=== PATIENT | male | born 1945 | race Caucasian/White ===

== ENCOUNTER 2019-11-21 01:00 | Emergency (ER) | payer OTHER, SELFPAY ==
--- NOTE | ~2019-11-21 | XR_ITS ---
EXAMINATION: XR thoracic spine 2V DATE: 11/21/2019 01:56 INDICATION: Mid and upper back pain post fall one week prior TECHNIQUE: One AP, lateral and lateral swimmer's views of the thoracic spine were obtained. COMPARISON: None. FINDINGS: Patient is rotated slightly towards the left on the frontal projection. Minimal thoracic kyphosis wit h minimal anterior wedging of a couple mid thoracic vertebral bodies. Multilevel mild to moderate dis c height loss with mild degenerative endplate changes throughout the thoracic spine. Mild left basila r atelectasis. Cardiomediastinal silhouette is normal. IMPRESSION: 1. Moderate thoracic spondylosis with age minimal anterior wedging of a couple mid thoracic vertebral bodies.. Reviewed, dictated and finalized at location A.
[2019-11-21 00:59] VITALS: BP 169/86; PULSE 88; RESP 20; TEMP 36.8; O2SAT 96
--- NOTE | 2019-11-21 01:31 | ED.BACK ---
HPI - Back Pain/Injury General Chief Complaint: Back Pain/Injury Stated Complaint: back pain History of Present Illness HPI Narrative: Patient presents with his after a fall 1 week ago out of the bed onto a trash can next to the bed. The pain was tolerable until just a couple days ago. Then he started having severe spasms. He had a similar back injury many years ago. He says the back pain is in his mid back. It has not affected his ability to urinate or defecate or use his legs. He is in too much pain now to sit up stand up or walk. He had difficulty turning over on his side for my exam. He has not been sick otherwise. He is blind in one eye and partially blind in the other. He is retired. He does not smoke cigarettes, he drinks occasional beer, he does not do marijuana. Surgeries include tonsillectomy MD elicited complaint: back pain, back injury and fall Pertinent past history: prior back pain and recent trauma Onset (ago): week(s) Timing: progressively worsening Severity: severe Similar Symptoms Previously: Yes Location: thoracic spine Radiation: none Exacerbating factors: movement, sitting upright and walking Relieving factors: immobilization Context: fall Associated symptoms: denies other symptoms Related Data Allergies Allergy/AdvReac Type Severity Reaction Status Date / Time lisinopril AdvReac Mild Cough Verified 11/21/19 01:07 Review of Systems Review of Systems: Narrative: CONSTITUTIONAL: Denies fever, chills, or sweats. EYES: Denies visual changes, redness, or discharge. ENT: Denies rhinorrhea, congestion, sore throat, or otalgia. CARDIOVASCULAR: Denies chest pain, palpitations, or edema. RESPIRATORY: Denies cough or dyspnea. GASTROINTESTINAL: Denies abdominal pain, nausea, vomiting, or diarrhea. GENITOURINARY: Denies dysuria or hematuria. SKIN: Denies rash or itching. MUSCULOSKELETAL: He has back pain, but not joint pain, or myalgia. NEUROLOGIC: Denies headache, numbness, or weakness. . All systems reviewed & are unremarkable except as noted in HPI and below PMFSH Past Medical History Medical History (Updated 11/21/19 @ 03:50 by Luci Patten MD) Benign essential hypertension BPH (benign prostatic hyperplasia) Hypothyroidism (acquired) Legally blind Optic atrophy, both eyes Surgical History Surgical History History of tonsillectomy Family History Family History (System 09/24/19 @ 13:24 by Sherlyn Lee) Other Family history of cardiovascular disease Social History Social History Smoking status: Former smoker Second hand tobacco smoke exposure: No Smoking end date: 04/15/75 Alcohol intake: current Exam Narrative: Exam Narrative: GENERAL: Well-appearing, well-nourished, and in no acute distress. He cannot pull himself over to the left side. HEAD: Normocephalic, atraumatic. EYES: PERRLA and EOMI. ENT: Nares clear, no rhinorrhea or epistaxis. Mucous membranes moist. NECK: Supple. CHEST: Clear to auscultation. No respiratory distress. HEART: Regular rate and rhythm. No murmur heard. Normal peripheral pulses. ABDOMEN: Soft, nontender, nondistended, normal active bowel sounds. EXTREMITIES: Normal range of motion. No edema. SKIN: Warm, dry, no rash. NEURO: No focal deficits. Alert and oriented x3. PSYCH: Flat affect and poor eye contact. Back: No spine tenderness, no muscle spasm. Course Reevaluation(s) Reevaluation #1: Went in to check on the patient [id number], and he has some pain improvement. He is still not able to sit himself up in bed or get out of the bed to walk. We will add more pain management to see if he can do better. Date: 11/21/19 Time: 02:53 Reevaluation #2: The nurse was able to help the patient walk to the bathroom, after the Dilaudid IV. Date: 11/21/19 Time: 03:51 Vital Signs Vital signs: Vital Signs Temperature 98.2 F 11/21/19 00:59
[2019-11-21 01:32] VITALS: BP 150/83; PULSE 87; RESP 20; O2SAT 95
[2019-11-21] MEDS: MORPHINE SULFATE 4 MG/ML INJ IV PUSH (01:56)
[2019-11-21 01:57] VITALS: BP 158/88; PULSE 88; RESP 20; O2SAT 97
[2019-11-21 02:34] VITALS: BP 149/84; PULSE 86; RESP 20; O2SAT 98
--- NOTE | 2019-11-21 02:40 | PC.NURSE ---
ATTEMPTED TO AMBULATE PT. PT C/O BACK PAIN AND STATES TOO PAINFUL TO SIT UP. DR SAM NOTIFIED.
[2019-11-21 04:01] VITALS: BP 149/84; PULSE 80; RESP 20; O2SAT 98
== END 2019-11-21 04:03 | disposition home or self-care (01) ==
PROVIDERS: Emergency Provider Emergency Medicine; PCP Family Medicine
DX: M54.6 Pain in thoracic spine (principal); M47.814 Spondylosis without myelopathy or radiculopathy, thoracic region; M40.204 Unspecified kyphosis, thoracic region; I10 Essential (primary) hypertension; N40.0 Benign prostatic hyperplasia without lower urinary tract symptoms; E03.9 Hypothyroidism, unspecified; H54.8 Legal blindness, as defined in USA; Z87.891 Personal history of nicotine dependence; W06.XXXA Fall from bed, initial encounter
CPT/HCPCS: 72070; 96374; 96375; 99284; J1170; J2270; J3360

== ENCOUNTER 2020-01-07 09:35 | Outpatient (CLI) | payer OTHER, SELFPAY ==
[2020-01-07 10:23] LABS: Basophils Absolute Auto 0.1 K/mm3 (0.0-0.1); Eosinophils Absolute Auto 0.1 K/mm3 (0-0.3); Eosinophils Percent Auto 1.4 % (0-4.4); Hematocrit 46.1 % (42.0-52.0); Hemoglobin 15.8 g/dL (14.0-18.0); Immature Granulocyte Absolute 0.03 K/mm3 (0.00-0.031); Immature Granulocyte Percent A 0.4 % (0-0.5); Lymphocytes Percent Auto 32.1 % (18.3-44.2); Mean Corpuscular HGB Conc 34.3 g/dl (32-36); Mean Corpuscular Hemoglobin 29.9 pg (26-34); Mean Corpuscular Volume 87.3 fl (80-100); Mean Platelet Volume 9.5 fl (7.4-10.4); Monocytes Absolute Auto 0.7 K/mm3 (0.1-0.6); Monocytes Percent Auto 7.9 % (2.6-8.5); Neutrophils Absolute Auto 4.8 K/mm3 (1.3-6.7); Neutrophils Percent Auto 57.2 % (45.5-73.1); Platelet Count Result 309 k/mm3 (150-375); Red Blood Count 5.28 M/mm3 (4.6-6.20); Red Cell Distribution Width 13.1 % (11.5-14.5); White Blood Count 8.4 K/mm3 (4.5-10.0)
[2020-01-07 10:30] LABS: Add Urine Microscopic? NO; Appearance Urine Clear (Clear); Bilirubin Urine Negative (Negative); Blood Urine Negative (Negative); Color Urine Yellow (Yellow); Glucose Urine UA Negative (Negative); Ketones Urine Negative (Negative); Leukocyte Esterase Ur Negative LEU/UL (Negative); Mucus Urine Rare /lpf; Nitrate Urine Negative (Negative); Protein Urine Negative (Negative); RBC Urine 0-2 /hpf (0-2); Specific Grav Ur 1.018 (1.001-1.035); Urobilinogen Urine Negative mg/dL (<2.0); WBC Urine 0-3 /hpf
[2020-01-07 10:36] LABS: Alanine Aminotransferase 30 U/L (4-50); Albumin Level 4.5 g/dL (3.5-5.1); Alkaline Phosphatase 73 U/L (38-126); Anion Gap 6 mmol/L (8-16); Aspartate Amino Transferase 24 U/L (17-59); Bilirubin,Total 0.7 mg/dL (0.2-1.3); Blood Urea Nitrogen 14 mg/dL (9-20); Calcium 10.1 mg/dL (8.4-10.2); Carbon Dioxide 28 mmol/L (22-30); Chloride 100 mmol/L (98-107); Estimated Glomerular Filt Rate > 60; Glucose 110 mg/dL (75-110); Potassium 4.4 mmol/L (3.4-5.0); Sodium 134 mmol/L (137-145)
[2020-01-07 12:10] LABS: Free T4 Free Thyroxine Reflex 1.05 ng/dL (0.78-2.19)
== END 2020-01-07 09:36 | disposition home or self-care (01) ==
LOC: ANHLAB 09:39
PROVIDERS: PCP Family Medicine; Visit Provider Family Medicine
DX: R41.82 Altered mental status, unspecified (principal); R44.3 Hallucinations, unspecified; I10 Essential (primary) hypertension; E03.9 Hypothyroidism, unspecified
CPT/HCPCS: 36415; 80053; 81003; 84439; 84443; 84480; 85025

== ENCOUNTER 2021-11-20 10:57 | Outpatient (CLI) | payer OTHER, SELFPAY ==
[2021-11-20 19:38] LABS: Cholesterol 168 mg/dL (0-200); HDL Direct 35 mg/dL; Triglycerides 103 mg/dL (<150)
[2021-11-20 19:43] LABS: Basophils Absolute Auto 0.1 K/mm3 (0.0-0.1); Basophils Percent Auto 1.1 % (0.2-1.2); Eosinophils Absolute Auto 0.2 K/mm3 (0-0.3); Eosinophils Percent Auto 3.2 % (0-4.4); Hematocrit 50.2 % (42.0-52.0); Hemoglobin 15.8 g/dL (14.0-18.0); Immature Granulocyte Absolute 0.04 K/mm3 (0.00-0.031); Immature Granulocyte Percent A 0.6 % (0-0.5); Mean Corpuscular HGB Conc 31.5 g/dl (32-36); Mean Corpuscular Hemoglobin 29.8 pg (26-34); Mean Corpuscular Volume 94.5 fl (80-100); Mean Platelet Volume 10.2 fl (7.4-10.4); Monocytes Absolute Auto 0.6 K/mm3 (0.1-0.6); Monocytes Percent Auto 8.5 % (2.6-8.5); Neutrophils Absolute Auto 4.2 K/mm3 (1.3-6.7); Neutrophils Percent Auto 58.6 % (45.5-73.1); Platelet Count Result 167 k/mm3 (150-375); Red Blood Count 5.31 M/mm3 (4.6-6.20); Red Cell Distribution Width 13.9 % (11.5-14.5); White Blood Count 7.2 K/mm3 (4.5-10.0)
[2021-11-20 19:50] LABS: LDL Cholesterol Direct 103 mg/dL
[2021-11-20 20:00] LABS: Vitamin D 25 Hydroxy 25.5 ng/mL
[2021-11-20 20:22] LABS: Hemoglobin A1C 6.2 % (<5.7)
== END 2021-11-20 10:58 | disposition home or self-care (01) ==
LOC: ANHGOSHLAB 10:59
PROVIDERS: PCP Nurse Practitioner Family; Visit Provider Nurse Practitioner Family
DX: E03.9 Hypothyroidism, unspecified (principal); I10 Essential (primary) hypertension; Z12.5 Encounter for screening for malignant neoplasm of prostate; R73.03 Prediabetes; E55.9 Vitamin D deficiency, unspecified
CPT/HCPCS: 36415; 80061; 82306; 83036; 84153; 84443; 85025; G0103

== ENCOUNTER 2022-11-22 13:47 | Outpatient (CLI) | payer OTHER, SELFPAY ==
[2022-11-22 16:04] LABS: Basophils Absolute Auto 0.1 K/mm3 (0.0-0.1); Basophils Percent Auto 0.8 % (0.2-1.2); Eosinophils Absolute Auto 0.3 K/mm3 (0-0.3); Hematocrit 45.6 % (42.0-52.0); Immature Granulocyte Absolute 0.06 K/mm3 (0.00-0.031); Immature Granulocyte Percent A 0.6 % (0-0.5); Lymphocytes Absolute Auto 2.75 K/mm3 (0.9-3.2); Lymphocytes Percent Auto 27.7 % (18.3-44.2); Mean Corpuscular HGB Conc 35.1 g/dl (32-36); Mean Corpuscular Hemoglobin 31.3 pg (26-34); Mean Corpuscular Volume 89.2 fl (80-100); Mean Platelet Volume 10.3 fl (7.4-10.4); Monocytes Absolute Auto 0.7 K/mm3 (0.1-0.6); Monocytes Percent Auto 6.7 % (2.6-8.5); Neutrophils Absolute Auto 6.1 K/mm3 (1.3-6.7); Neutrophils Percent Auto 61.2 % (45.5-73.1); Platelet Count Result 294 k/mm3 (150-375); Red Blood Count 5.11 M/mm3 (4.6-6.20); Red Cell Distribution Width 13.2 % (11.5-14.5); White Blood Count 9.9 K/mm3 (4.5-10.0)
[2022-11-22 17:56] LABS: Vitamin D 25 Hydroxy 15.8 ng/mL
[2022-11-22 19:22] LABS: LDL Cholesterol Direct 118 mg/dL
[2022-11-22 19:40] LABS: Prostate Specific Antigen 0.8 ng/mL (< OR = 4.0)
[2022-11-22 19:54] LABS: Alanine Aminotransferase 37 U/L (6-50); Albumin Level 4.3 g/dL (3.5-5.1); Alkaline Phosphatase 67 U/L (38-126); Anion Gap 10 mmol/L (8-16); Aspartate Amino Transferase 33 U/L (17-59); Bilirubin,Total 0.6 mg/dL (0.2-1.3); Blood Urea Nitrogen 16 mg/dL (9-20); Calcium 9.6 mg/dL (8.4-10.2); Carbon Dioxide 24 mmol/L (22-30); Chloride 100 mmol/L (98-107); Cholesterol 211 mg/dL (0-200); Estimated Glomerular Filt Rate > 60; Glucose 167 mg/dL (65-110); Potassium 4.2 mmol/L (3.4-5.0); Sodium 134 mmol/L (137-145)
[2022-11-22 21:13] LABS: Hemoglobin A1C 7.7 % (<5.7)
[2022-11-22 21:41] LABS: Triglycerides 617 mg/dL (<150)
== END 2022-11-22 13:48 | disposition home or self-care (01) ==
LOC: ANHGOSHLAB 13:48
PROVIDERS: PCP Family Medicine; Visit Provider Nurse Practitioner Family
DX: Z12.11 Encounter for screening for malignant neoplasm of colon (principal); Z12.12 Encounter for screening for malignant neoplasm of rectum; Z13.220 Encounter for screening for lipoid disorders; Z12.5 Encounter for screening for malignant neoplasm of prostate; Z13.1 Encounter for screening for diabetes mellitus; Z13.21 Encounter for screening for nutritional disorder; Z13.29 Encounter for screening for other suspected endocrine disorder; I10 Essential (primary) hypertension; E55.9 Vitamin D deficiency, unspecified; R73.03 Prediabetes
CPT/HCPCS: 36415; 80053; 80061; 82306; 83036; 84153; 84443; 85025; G0103

== ENCOUNTER 2023-01-01 03:06 | Day surgery (SDC) | payer OTHER, SELFPAY ==
[2022-12-20 10:47] VITALS: BMI 39.2
[2023-01-01 09:00] VITALS: BP 148/80; PULSE 90; RESP 18; TEMP 36.2; O2SAT 98
[2023-01-01] MEDS: LACTATED RINGERS 1,000 ML 150 ML IV CONT (09:08)
--- NOTE | 2023-01-01 09:23 | WPDANESEPPF ---
Anes - Initial Pre Proc Eval Procedure: Operation Date: 01/01/23 10:00 Proposed Procedures p Colonoscopy - Michael Castañeda MD Date/Time: 01/01/23 09:23 Surgeon: Michael Castañeda MD Pre Op Diagnosis: other fecal abnormalities Patient Data Age: 77 Gender: M Height: 1.7 m Weight: 99.2 kg Last Vital Signs Temp 97.1 F L 01/01/23 09:00 Pulse 90 01/01/23 09:00 Resp 18 01/01/23 09:00 BP 148/80 H 01/01/23 09:00 Pulse Ox 98 01/01/23 09:00 O2 Del Method Room Air 01/01/23 09:00 Allergies Allergy/AdvReac Type Severity Reaction Status Date / Time lisinopril Allergy Mild Cough Verified 01/01/23 08:58 Home Medications Medication Instructions Recorded Confirmed Type dutasteride 0.5 mg capsule 0.5 mg PO DAILY #90 caps 07/29/19 12/20/22 Rx escitalopram oxalate 10 mg tablet 10 mg PO DAILY #90 tabs 11/29/20 12/20/22 Rx losartan 50 mg tablet 50 mg PO DAILY #90 tabs 01/01/22 12/20/22 Rx metoprolol succinate 25 mg 25 mg PO DAILY #90 tabs 01/01/22 12/20/22 Rx tablet,extended release 24 hr lorazepam 0.5 mg tablet 0.5 mg PO .QHS #30 tabs 11/22/22 12/20/22 Rx cholecalciferol (vitamin D3) 1,250 1,250 mcg PO WEEKLY 6 months #26 11/23/22 12/20/22 Rx mcg (50,000 unit) capsule caps levothyroxine 88 mcg tablet 88 mcg PO DAILY #90 tabs 11/23/22 12/20/22 Rx Patient hx anesthesia problems: none Family hx anesthesia problems: none Results Review: All pre-operative results and documents have been reviewed as part of the pre-operative evaluation. 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 History of tonsillectomy Family History Family History Other Family history of cardiovascular disease Social History Social History (Updated 11/22/22 @ 13:11 by Karlie Vazquez MA) Smoking packs per day: 0.75 Smoking cigarettes per day: 15.0 Years smoked: 10 Smoking pack-years: 7.50 Smoking status: Former smoker Second hand tobacco smoke exposure: No Smoking end date: 04/15/75 Alcohol intake: current Substance use: never Substance use type: does not use Lack of Transportation: No Lack of Food: Never True Current Housing: I Have Housing Concerned About Future Housing: No Difficulty Paying Gas/Electric Bills: No Difficulty Paying for Meds: No Currently Unemployed: No Education: Bachelor's Degree Difficulty w/ Childcare or Family Care: No Living arrangements: assisted living Additional living arrangements comments: [facility] Occupation/Education: retired Gender identity (if verbalized by the patient): Male Spiritual care concerns: No Agree to blood products: Yes Anes - Eval Final PreProcedure Day of Procedure 01/01/23 09:23 Patient weight: obese Heart: regular rate and rhythm Lungs: clear to auscultation Airway: Mallampati scale class II Neurological: alert and oriented Last oral intake: >/= 8 hours ASA classification: III Emergent: no Anesthetic plan: proceed Anesthesia type and monitoring: general GIVS and standard monitoring Results Review: All pre-operative results and documents have been reviewed as part of the pre-operative evaluation. Informed Consent: The patient's anesthetic plan and its attendant risks and benefits were discussed with
--- NOTE | 2023-01-01 09:35 | PM.HPGS ---
History of Present Illness History of Present Illness Consent: Risks, benefits, and alternatives have been discussed and questions answered. Patient agrees to proceed with procedure. Chief complaint: other fecal abnormalities Narrative: Royal Isma Trotter Jr. is a 77 year old male here for first colonoscopy, had + cologuard Review of Systems Constitutional: Constitutional: Denies headache(s) and Denies weakness Eyes: Eyes: Denies blurry vision ENT: Reports Normal hearing present, Denies headache(s) and Denies neck pain Cardiovascular: Cardiovascular: Denies chest pain and Denies dyspnea Respiratory: Respiratory: Denies dyspnea Gastrointestinal: Gastrointestinal: Reports no additional gastrointestinal complaints Genitourinary: Genitourinary: Denies dysuria Musculoskeletal: Musculoskeletal: Denies neck pain Integumentary/Breasts: Skin/Breast: Denies dry skin Neurologic: Reports Normal hearing present, Denies headache(s) and Denies weakness Psychiatric: Psychiatric: Denies anxiety Endocrine: Endocrine: Denies change in body appearance Hematologic/Lymphatic: Hematologic/Lymphatic: Denies easy bleeding Allergic/Immunologic: Allergic/Immunologic: Denies urticaria PMFSH Past Medical History Medical History (Updated 12/12/22 @ 16:04 by Gris Antunez, DEREK) Benign essential hypertension Benign neoplasm of cerebral meninges BPH (benign prostatic hyperplasia) Depression Hyperlipidemia Hypothyroidism (acquired) Legally blind Optic atrophy, both eyes Positive colorectal cancer screening using Cologuard test Vascular dementia with behavioral disturbance Surgical History Surgical History History of craniotomy 10/12/19 - right fronto temporal craniotomy for meningioma resection 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 History of tonsillectomy Family History Family History Other Family history of cardiovascular disease Social History Social History (Updated 11/22/22 @ 13:11 by Karlie Vazquez MA) Smoking packs per day: 0.75 Smoking cigarettes per day: 15.0 Years smoked: 10 Smoking pack-years: 7.50 Smoking status: Former smoker Second hand tobacco smoke exposure: No Smoking end date: 04/15/75 Alcohol intake: current Substance use: never Substance use type: does not use Lack of Transportation: No Lack of Food: Never True Current Housing: I Have Housing Concerned About Future Housing: No Difficulty Paying Gas/Electric Bills: No Difficulty Paying for Meds: No Currently Unemployed: No Education: Bachelor's Degree Difficulty w/ Childcare or Family Care: No Living arrangements: assisted living Additional living arrangements comments: [facility] Occupation/Education: retired Gender identity (if verbalized by the patient): Male Spiritual care concerns: No Agree to blood products: Yes Meds Home Medications and Allergies Home Medications Medication Instructions Recorded Confirmed Type dutasteride 0.5 mg capsule 0.5 mg PO DAILY #90 caps 07/29/19 12/20/22 Rx escitalopram oxalate 10 mg tablet 10 mg PO DAILY #90 tabs 11/29/20 12/20/22 Rx losartan 50 mg tablet 50 mg PO DAILY #90 tabs 01/01/22 12/20/22 Rx metoprolol succinate 25 mg 25 mg PO DAILY #90 tabs 01/01/22 12/20/22 Rx tablet,extended release 24 hr lorazepam 0.5 mg tablet 0.5 mg PO .QHS #30 tabs 11/22/22 12/20/22 Rx cholecalciferol (vitamin D3) 1,250 1,250 mcg PO WEEKLY 6 months #26 11/23/22 12/20/22 Rx mcg (50,000 unit) capsule caps levothyroxine 88 mcg tablet 88 mcg PO DAILY #90 tabs 11/23/22 12/20/22 Rx Allergies Allergy/AdvReac Type Severity Reaction Status Date / Time lisinopril Allergy Mild Cough Verified 01/01/23 08:58 Vital Signs Vital Signs - 24 hr 01/01/23 09:00 Temperature 97.1 F L Pulse Rate 90 Respirato
[2023-01-01 10:04] VITALS: BP 116/76; PULSE 77; RESP 20; O2SAT 95
[2023-01-01 10:14] VITALS: BP 152/90; PULSE 72; RESP 22; O2SAT 96
[2023-01-01 10:24] VITALS: BP 148/93; PULSE 63; RESP 28; O2SAT 100
== END 2023-01-01 10:41 | disposition home or self-care (01) ==
PROVIDERS: PCP Family Medicine; Visit Provider Internal Medicine Gastroenterology
PROC: 0DJD8ZZ Inspection of Lower Intestinal Tract, Via Natural or Artificial Opening Endoscopic (ICD-10-PCS; CPT 45378; principal; 2023-01-01 10:00)
DX: R19.5 Other fecal abnormalities (principal); D12.2 Benign neoplasm of ascending colon; D12.3 Benign neoplasm of transverse colon; K57.30 Diverticulosis of large intestine without perforation or abscess without bleeding; K64.8 Other hemorrhoids; E78.5 Hyperlipidemia, unspecified; E03.9 Hypothyroidism, unspecified; I10 Essential (primary) hypertension; F01.518 Vascular dementia, unspecified severity, with other behavioral disturbance; Z87.891 Personal history of nicotine dependence; E66.9 Obesity, unspecified; Z68.34 Body mass index [BMI] 34.0-34.9, adult
CPT/HCPCS: 45385; 88305; J2704; J7120

== ENCOUNTER 2023-06-03 11:31 | Outpatient (CLI) | payer OTHER, SELFPAY ==
[2023-06-03 13:02] LABS: Basophils Absolute Auto 0.1 K/mm3 (0.0-0.1); Basophils Percent Auto 0.8 % (0.2-1.2); Eosinophils Absolute Auto 0.2 K/mm3 (0-0.3); Eosinophils Percent Auto 1.8 % (0-4.4); Hematocrit 46.2 % (42.0-52.0); Hemoglobin 15.5 g/dL (14.0-18.0); Immature Granulocyte Absolute 0.11 K/mm3 (0.00-0.031); Immature Granulocyte Percent A 1.1 % (0-0.5); Lymphocytes Absolute Auto 2.36 K/mm3 (0.9-3.2); Lymphocytes Percent Auto 24.3 % (18.3-44.2); Mean Corpuscular HGB Conc 33.5 g/dl (32-36); Mean Corpuscular Hemoglobin 30.3 pg (26-34); Mean Corpuscular Volume 90.2 fl (80-100); Mean Platelet Volume 10.4 fl (7.4-10.4); Monocytes Absolute Auto 0.9 K/mm3 (0.1-0.6); Monocytes Percent Auto 9.3 % (2.6-8.5); Neutrophils Absolute Auto 6.1 K/mm3 (1.3-6.7); Neutrophils Percent Auto 62.7 % (45.5-73.1); Platelet Count Result 314 k/mm3 (150-375); Red Blood Count 5.12 M/mm3 (4.6-6.20); Red Cell Distribution Width 13.1 % (11.5-14.5); White Blood Count 9.7 K/mm3 (4.5-10.0)
[2023-06-03 13:05] LABS: Cholesterol 194 mg/dL (0-200); HDL Direct 37 mg/dL; Triglycerides 302 mg/dL (<150)
[2023-06-03 13:16] LABS: LDL Cholesterol Direct 117 mg/dL
[2023-06-03 14:13] LABS: Hemoglobin A1C 8.1 % (<5.7)
== END 2023-06-03 11:32 | disposition home or self-care (01) ==
LOC: ANHGOSHLAB 11:33
PROVIDERS: PCP Family Medicine; Visit Provider Nurse Practitioner Family
DX: E78.5 Hyperlipidemia, unspecified (principal); I10 Essential (primary) hypertension; F32.9 Major depressive disorder, single episode, unspecified; R73.03 Prediabetes; Z13.29 Encounter for screening for other suspected endocrine disorder; Z13.220 Encounter for screening for lipoid disorders
CPT/HCPCS: 36415; 80061; 83036; 84443; 85025

== ENCOUNTER 2023-12-30 15:06 | Outpatient (CLI) | payer OTHER, SELFPAY ==
[2023-12-30 18:26] LABS: Basophils Absolute Auto 0.1 K/mm3 (0.0-0.1); Basophils Percent Auto 0.9 % (0.2-1.2); Eosinophils Absolute Auto 0.2 K/mm3 (0-0.3); Eosinophils Percent Auto 1.6 % (0-4.4); Hematocrit 47.1 % (42.0-52.0); Hemoglobin 16.1 g/dL (14.0-18.0); Immature Granulocyte Absolute 0.08 K/mm3 (0.00-0.031); Immature Granulocyte Percent A 0.8 % (0-0.5); Lymphocytes Absolute Auto 2.68 K/mm3 (0.9-3.2); Lymphocytes Percent Auto 28.3 % (18.3-44.2); Mean Corpuscular HGB Conc 34.2 g/dl (32-36); Mean Corpuscular Hemoglobin 30.3 pg (26-34); Mean Corpuscular Volume 88.7 fl (80-100); Mean Platelet Volume 10.5 fl (7.4-10.4); Monocytes Absolute Auto 0.6 K/mm3 (0.1-0.6); Monocytes Percent Auto 6.5 % (2.6-8.5); Neutrophils Absolute Auto 5.9 K/mm3 (1.3-6.7); Neutrophils Percent Auto 61.9 % (45.5-73.1); Platelet Count Result 298 k/mm3 (150-375); Red Blood Count 5.31 M/mm3 (4.6-6.20); Red Cell Distribution Width 13.3 % (11.5-14.5); White Blood Count 9.5 K/mm3 (4.5-10.0)
[2023-12-30 18:50] LABS: Hemoglobin A1C 9.1 % (<5.7)
[2023-12-30 19:07] LABS: Alanine Aminotransferase 27 U/L (6-50); Albumin Level 4.6 g/dL (3.5-5.1); Alkaline Phosphatase 68 U/L (38-126); Anion Gap 17 mmol/L (4-12); Aspartate Amino Transferase 36 U/L (17-59); Bilirubin,Total 0.9 mg/dL (0.2-1.3); Blood Urea Nitrogen 19 mg/dL (9-20); Calcium 9.5 mg/dL (8.4-10.2); Carbon Dioxide 23 mmol/L (22-30); Chloride 91 mmol/L (98-107); Cholesterol 208 mg/dL (0-200); Estimated Glomerular Filt Rate > 60; Glucose 251 mg/dL (65-110); HDL Direct 43 mg/dL; Potassium 4.9 mmol/L (3.4-5.0); Sodium 131 mmol/L (137-145); Triglycerides 284 mg/dL (<150)
[2023-12-30 19:18] LABS: LDL Cholesterol Direct 121 mg/dL
[2023-12-30 19:36] LABS: Prostate Specific Antigen 0.9 ng/mL (< OR = 4.0)
== END 2023-12-30 15:07 | disposition home or self-care (01) ==
LOC: ANHGOSHLAB 15:07
PROVIDERS: PCP Family Medicine; Visit Provider Nurse Practitioner Family
DX: I10 Essential (primary) hypertension (principal); E78.5 Hyperlipidemia, unspecified; E11.9 Type 2 diabetes mellitus without complications; E03.9 Hypothyroidism, unspecified; Z12.5 Encounter for screening for malignant neoplasm of prostate
CPT/HCPCS: 36415; 80053; 80061; 83036; 84153; 84443; 85025; G0103

== ENCOUNTER 2024-04-06 11:06 | Outpatient (CLI) | payer OTHER, SELFPAY ==
[2024-04-06 12:39] LABS: Alanine Aminotransferase 26 U/L (6-50); Albumin Level 4.2 g/dL (3.5-5.1); Alkaline Phosphatase 56 U/L (38-126); Anion Gap 3 mmol/L (4-12); Aspartate Amino Transferase 33 U/L (17-59); Bilirubin,Total 0.7 mg/dL (0.2-1.3); Blood Urea Nitrogen 17 mg/dL (9-20); Calcium 9.7 mg/dL (8.4-10.2); Carbon Dioxide 27 mmol/L (22-30); Chloride 107 mmol/L (98-107); Cholesterol 211 mg/dL (0-200); Estimated Glomerular Filt Rate > 60; Glucose 191 mg/dL (65-110); HDL Direct 37 mg/dL; Potassium 4.7 mmol/L (3.4-5.0); Sodium 137 mmol/L (137-145); Triglycerides 323 mg/dL (<150)
[2024-04-06 12:50] LABS: LDL Cholesterol Direct 130 mg/dL
[2024-04-06 13:02] LABS: Creatinine Urine 73.3 mg/dL
[2024-04-06 13:11] LABS: MALB Creatinine Ratio < 8.2 mg/g (0-30); Microalbumin Urine Random < 6.0 mg/L (0-16.7)
[2024-04-06 13:48] LABS: Hemoglobin A1C 6.9 % (<5.7)
== END 2024-04-06 11:07 | disposition home or self-care (01) ==
LOC: ANHGOSHLAB 11:07
PROVIDERS: PCP Family Medicine; Visit Provider Nurse Practitioner Family
DX: E78.5 Hyperlipidemia, unspecified (principal); E11.9 Type 2 diabetes mellitus without complications
CPT/HCPCS: 36415; 80053; 80061; 82043; 83036

== ENCOUNTER 2024-06-29 11:22 | Outpatient (CLI) | payer OTHER, SELFPAY ==
[2024-06-29 13:56] LABS: Basophils Absolute Auto 0.1 K/mm3 (0.0-0.1); Basophils Percent Auto 1.1 % (0.2-1.2); Eosinophils Absolute Auto 0.2 K/mm3 (0-0.3); Eosinophils Percent Auto 2.1 % (0-4.4); Hematocrit 51.7 % (42.0-52.0); Hemoglobin 17.5 g/dL (14.0-18.0); Immature Granulocyte Absolute 0.07 K/mm3 (0.00-0.031); Immature Granulocyte Percent A 0.8 % (0-0.5); Lymphocytes Absolute Auto 1.97 K/mm3 (0.9-3.2); Lymphocytes Percent Auto 23.9 % (18.3-44.2); Mean Corpuscular HGB Conc 33.8 g/dl (32-36); Mean Corpuscular Volume 88.5 fl (80-100); Mean Platelet Volume 10.2 fl (7.4-10.4); Monocytes Absolute Auto 0.8 K/mm3 (0.1-0.6); Monocytes Percent Auto 9.1 % (2.6-8.5); Neutrophils Absolute Auto 5.2 K/mm3 (1.3-6.7); Platelet Count Result 279 k/mm3 (150-375); Red Blood Count 5.84 M/mm3 (4.6-6.20); Red Cell Distribution Width 14.4 % (11.5-14.5); White Blood Count 8.3 K/mm3 (4.5-10.0)
--- OUTSIDE RECORDS SUMMARY | 2024-06-29 14:02 | XMS_ITS | Clinical Summary ---
Author Organization [facility] Address [place] [address] Care Team Providers Care Fuel Agent Name Role Phone Mo Garcia OD Unavailable [phone] Twin Dawson MD Unavailable [phone] Ang Gallo MD Unavailable [phone] Audie Hennessy MD Primary Care Provider Marjorie Nick MD Unavailable Allergies Active Allergy Reactions Criticality Noted Date Comments Lisinopril Cough Low 10/26/2019 Medications dutasteride (AVODART) 0.5 mg capsuleIndicatio ns:benign prostatic hyperplasia with lower urinary tract sx Take 1 capsule (0.5 mg total) by mouth nightly Active losartan (COZAAR) 50 mg tabletIndication s:hypertension Take 1 tablet (50 mg total) by mouth nightly Active levothyroxine (SYNTHROID) 75 mcg tablet Take 1 tablet (75 mcg total) by mouth postdoctoral research associate before breakfast Active metoprolol XL (TOPROL-XL) 25 mg extended release tablet Take 1 tablet (25 mg total) by mouth daily 30 tablet 11 0 Active escitalopram (LEXAPRO) 10 mg tablet Take 1 tablet (10 mg total) by mouth daily 1 Active LORazepam (ATIVAN) 0.5 mg tablet Take 1 tablet (0.5 mg total) by mouth every 6 (six) hours as needed 1 Active cholecalciferol (VITAMIN D-3) 50,000 unit capsule 3 Active benzonatate (TESSALON) 100 mg capsule 4 Active metroNIDAZOLE (METROGEL) 1 % gel 4 Active Paxlovid tablets,dose pack tablets in a dose pack 4 Active metFORMIN (GLUCOPHAGE) 1,000 mg tablet 4 Active levothyroxine (SYNTHROID) 100 mcg tablet 4 Active Active Problems Problem Noted Date Diagnosed Date S/P LABOR UTILIZATION SUPERINTENDENT shunt 04/29/2020 Hydrocephalus 02/01/2020 Overview (02/01/2020): Added automatically from request for surgery [id number] Other hydrocephalus 01/29/2020 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 Sodium was normal on admission and fell to a low of 131 on 10/16. Serum osmolality drawn was 340 at that time. Unclear if lab error contributed to that value otherwise he would have hyperosmolar hyponatremia. It does not appear that he received mannitol this admission and he has not profoundly hyperglycemic. Plan to repeat BMP and serum Osm. 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 Will continue to monitor and if discharged would make sure to have a BMP drawn within a week. Atrial fibrillation with RVR 10/15/2019 Assessment & Plan (10/20/2019 11:19 AM CDT): Developed episode of AFib with RVR postop and subsequently converted to normal sinus rhythm after amiodarone therapy. Heart rate was not responsive to metoprolol 5 mg IV x2. He is currently on amiodarone 400 mg t.i.d. with plans to taper to once daily dosing. The patient has no documented prior history of AFib. -I suspect this episode of AFib with RVR was likely secondary to his procedure and will be transient -Recommend discontinuing amiodarone and continuing to monitor. Please alert his primary care doctor at discharge so that he can follow up and determine any further steps if he develops recurrent arrhythmia or palpitations. -maintained sinus rhythm overnight Incidental pulmonary nodule 10/15/2019 Overview (10/16/2019): RML 3 mm nodule seen incidentally on CT chest PE protocol Urinary retention 10/14/2019 Meningioma 10/02/2019 Overview (10/02/2019): Added automatically from request for surgery [id number] Legally blind 09/28/2019 Blindness right eye category 3, low vision left eye category 1 09/26/2019 Encounter for surgical after care following surgery on the nervous system 09/26/2019 Hypo-osmolality and hyponatremia 09/26/2019 Retention of urine, unspecified 09/26/2019 Hypertension Immunizations Immunization Administration Dates Next Due Influenza, Quadrivalent, Hig h Dose, Preservative Free, Intrr 01/12/2020 Influenza, Quadrivalent, Split, Intramuscular Influenza, Trivalent, High D ose, Split, Preservative Free, Intramuscular 01/13/2015 Influenza, Trivalent, IM (MDV) 12/15/2013,2012 Pfizer SARS-CoV-2 Monovalent Vaccination (12+ Yrs) PURPLE 06/03/2020 Pfizer Sars-Cov-2 Bivalent Vaccination (12+ YRS) 04/10/2022 Pneumococcal Polysaccharide PPV23 04/15/2016,04/2015 Tdap 03/08/2021 Surgical History Surgery Date Site/Laterality Comments CATARACT EXTRACTION W/ INTRAOCULAR LENS IMPLANT 08/24/[address] Twin Dawson CATARACT EXTRACTION W/ INTRAOCULAR LENS IMPLANT 05/26/[address] Twin Dawson CRANIOTOMY FOR TUMOR 10/12/2019 Right Right fronto-temporal craniotomy for resection of meningioma, Dr. Ang Gallo Medical History Medical History Date Comments Hypertension Benign prostatic hyperplasia Hypothyroidism Brain tumor (benign) (HCC) Acid reflux Family History Medical History Relation Name Comments Heart disease Brother Heart disease Father Stroke Mother (possibly) Diabetes Paternal Grandmother Vision loss Neg Hx Relation Name Status Comments Brother Father Mother Paternal Grandmother Social History Tobacco Use Types Packs/Day Years Used Date Smoking Tobacco: Former Cigarettes 0.8 13 1 963 - 1975 Smokeless Tobacco: Never Tobacco Cessation:Counseling Given: No Alcohol Use Standard Drinks/Week Comments Yes 10 (1 standard drink = 0.6 oz pu re alcohol) 10 beers per week Social Connection and Isolat ion Panel [NHANES] Answer Date Recorded In a typical week, how many times do you talk on the phone with family, friends, or neighbors? Three times a week 02/15/2020 How often do you get togethe r with friends or relatives? Once a week 02/15/2020 How often do you attend chur ch or samaritan services? Never 02/15/2020 Do you belong to any clubs o r organizations such as synagogue groups, unions, fraternal or athletic groups, or school groups? Yes 02/15/2020 How often do you attend meet ings of the clubs or organizations you belong to? More than 4 times per year 02/15/2020 Are you , , di vorced, , never , or living with a partner? 02/15/2020 AUDIT-C Answer Date Recorded Q1: How often do you have a drink containing alc ohol? Monthly or less 04/10/2022 Q2: How many drinks containi ng alcohol do you have on a typical day when you are drinking? 1 or 2 04/10/2022 Q3: How often do you have si x or more drinks on one occasion? Less than monthly 04/10/2022 Overall Financial Resource Strain (CARDIA) Answe r Date Recorded How hard is it for you to pa y for the very basics like food, housing, medical care, and heating? Not hard at all 02/15/2020 Hunger Vital Sign Answer Date Recorded Within the past 12 months, y ou worried that your food would run out before you got the money to buy more. Never true 02/15/20 20 Within the past 12 months, t he food you bought just didn't last and you didn't have money to get more. Never true 02/15/2020 PRAPARE - Transportation Answer Date Re corded In the past 12 months, has l ack of transportation kept you from medical appointments or from getting medications? No 05/2019 In the past 12 months, has l ack of transportation kept you from meetings, work, or from getting things needed for daily living? 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 Gender Identity Not on file Sexual Orientation Not on file Occupation Industry Job Start Date Job End Date retired Not on file Not on file Not on file Obstetrics History Last Filed Vital Signs Vital Sign Reading Time Taken Comments Blood Pressure 119/76 01/15/2024 1:43 PM CDT Pulse 60 01/15/2024 1:43 PM CDT Temperature 36.4 C (97.5 F) 01/15/2024 1:43 PM CDT Respiratory Rate 18 01/15/2024 1:43 PM CDT Oxygen Saturation 97% 01/15/2024 1:43 PM CDT Inhaled Oxygen Concentration - - Weight 95.3 kg (210 lb) 01/15/2024 1:43 PM CDT Height 170.2 cm (5' 7 ) 01/15/2024 12:18 PM CDT Body Mass Index 32.89 01/15/2024 12:18 PM CDT Plan of Treatment Health Maintenance Due Date Last Done Comments Depression Screening 1945 Hepatitis C Screening 1946 Hepatitis B Screening 1964 Zoster Vaccine (1 of 2) 1965 Abdominal Aortic Aneurysm (A AA) Screen 2011 Well Visit 65+ 2011 Pneumococcal vaccine 65+ (3 of 3 - PCV) 04/15/2017 04/15/2016, 04/15/2015 Covid-19 Vaccine (4 - 2023-2 5 season) 2023 04/10/2022, 03/15/2021, 06/03/2020 Influenza Vaccine (#1) 2023 0, 01/20/2019, 01/13/2015, Additional history exists Fall Risk Assessment 05/15/2024 05/15/2023, 02/25/20 20 DTaP/Tdap/Td Vaccine (2 - Td or Tdap) 03/08/2031 03/08/2021 Medical Devices Implanted Type Area Dental Equipment Installer And Servicer Device Identifier Shelf Expiration Date Model / Serial / Lot [employer] Craniomaxillofacial [id number] [place] Neuro Iii 47x29x.3mm Closed Outer Frame Temporal Plate - [id number] Implanted:Qty: 1 on 10/12/2019 by Ang Gallo MD at [facility] [employer] Craniomaxillofacial [id number] 4 / / Jeff Craniomaxillofacial [id number] [place] Neuro Iii 16mmx.4mm 2 Hole Low Profile Bar - [id number] Implanted:Qty: 2 on 10/12/[facility] Craniomaxillofacial 53-3421 6 / / [place] Craniomaxillofacial [id number] [place] Neuro Iii .4mm 2 Hole Low Profile Bar Tab - [id number] Implanted:Qty: 2 on 10/12/2019 [facility] Craniomaxillofacial 53-3421 2 / / Jeff Craniomaxillofacial [id number] [place] Neuro Iii 14mm Tab Craniomaxillofacial Low Profile - [id number] Implanted:Qty: 3 on 10/12/2019 by Ang Gallo MD at [facility] Craniomaxillofacial 53-3451 4 / / [place] Craniomaxillofacial [id number] [place] Neuro 3 1.5mm 4mm Self Drill Axial Stability Screw Bone Latex Free - [id number] Implanted:Qty: 20 on 10/12/2019 by Ang Gallo MD at [facility] [id number] / / Acelity Lp Inc [id number] Alloderm 10x5cm Allograft Regenerative Freeze Dried Medium Matrix - [id number] Implanted:Qty: 1 on 10/12/2019 by Ang Gallo MD at [facility] Right: Cranial Allergan U[employer] Inc 05/14/2021 [id number] / / [id number] 33-033 Medtronic Inc 58572 Input Ts 9fr 11cm .038in Dual Distal J Curve Introducer Sheath - [id number] Implanted:Qty: 1 on 02/11/2020 by Ang Gallo MD at [facility] Right: Head Medtronic Inc 06/29/2021 [id number] / / [id number] Description:The Strata II va lve is considered Magnetic Resonance Conditional in accordance with ASTM F2503. MRI systems of up to 3.0 Nathan may be used any time after implantation and will not damage the Strata II valve mechanism, but can change the performance level setting. The performance level setting should always be checked before and after MRI exposure. The results of the tests performed to assess magnetic field interactions, artifacts, and heating, indicated the presence of the valves evaluated should present no substantial risk to a patient undergoing an MRI procedure using the following conditions: Static magnetic field of 3.0 Nathan or less Spatial Gradient of 720 G/cm or less Radio Frequency (RF) Boyce with an average Specific Absorption Rate (MEDHAT) of 3 W/kg for 15 minutes. Using the Anthem [employer] Intelligence 3.0T Listare VeriTainer Magnetic Resonance Imaging System, the valve experienced a maximum temperature change of 0.4 C over a 15-minute exposure period. The table provides maximum signal voids (artifact sizes) for standard imaging pulse sequences at 3.0 Nathan per ASTM F2119. [email or web address] Medtronic MinuteKey Inc X [id number] Strata Ii Csf Programmable Flow Control Ball Spring Mechanism - [id number] Implanted:Qty: 1 on 02/11/2020 by Ang Gallo MD at [facility] Right: Head Medtronic Inc 05/09/2022 [id number] / / [id number] Description:Strata adjustabl e valves: MR conditional Strata adjustable valves are considered magnetic resonance conditional in accordance with ASTM F2503. MRI systems of up to 3.0 nathan and a spatial gradient magnetic field of 720 gauss/cm or less, may be used at any time after implantation without damaging the Strata adjustable valve mechanism. However, exposure to MRI can change the performance level setting of the Strata adjustable valve. The Strata adjustable valve performance level setting should always be checked before and after MRI exposure. https://www.medtronic.com/us-en/healthcare-professionals/mri-resources/neurologi pauline-dilcia sorto.html Medtronic Inc 64225 Giuseppe .25cm .13cm 120cm Antibiotic Impregnated Peritoneal Catheter - [id number] Implanted:Qty: 1 on 02/11/2020 by Ang Gallo MD at [facility] Right: Abdomen Medtronic Inc 05/25/2021 [id number] / / [id number] Insurance Advance Directives For more information, please contact: [phone] Documents on File Type Date Recorded Patient Knot Tying Operator Expl anation ADVANCE DIRECTIVE 10/12/2019 9:25 AM Power of Magazine Editor-Medical * Full Code (Latest Code Status on File) Date Activated Date Inactivated Comments 02/11/2020 4:37 PM 02/25/2020 3:55 PM * Full Code Date Activated Date Inactivated Comments 10/13/2019 12:40 AM 10/21/2019 4:13 PM Care Teams Fuel Agent Relationship Specialty Start Date End Date Audie Hennessy MD [address] [facility] [address] [place], [place] [address] PCP - General Family Practice 04/10/23 Mo Garcia, MAYRA [address] [place] [address] Primary Eye Care Provider Senior Marketing Engineer 07/27/19 Twin Dawson MD [address] [place] [address] Surgeon Ophthalmology 07/27/19 Ang Gallo MD [address] [place] [address] Surgeon Neurosurgery 10/26/19 Marjorie Nick MD [address] [facility] [address] [place] [address] Radiation Oncologist Radiation Oncology 01/15/24
--- OUTSIDE RECORDS SUMMARY | 2024-06-29 14:02 | XMS_ITS | Encounter Summary ---
Author Organization [facility] Address [address] [place] [address] Care Team Providers Care Management Aide Name Role Phone Gabby Tomlinson MD Primary Care Provider Mo Garcia OD Unavailable [phone] Twin Dawson MD Unavailable [phone] Ang Gallo MD Unavailable [phone] Audie Hennessy MD Primary Care Provider Audie Hennessy MD Primary Care Provider Marjorie Nick MD Unavailable Encounter Details Date Type Department Care Team (Late st Contact Info) Description 09/24/2019 Telephone [facility] Imaging [address] [place] [address] Alexia Ch, RT Social History Tobacco Use Types Packs/Day Years Used Date Smoking Tobacco: Former Cigarettes 0.5 10 Smokeless Tobacco: Never Sex and Gender Information Value Date Recorded Sex Assigned at Not on file 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 Gender Identity Not on file Sexual Orientation Not on file Occupation Industry Job Start Date Job End Date retired Not on file Not on file Not on file documented as of this encounter Plan of Treatment Not on file documented as of this encounter Visit Diagnoses Not on filedocumented in this encounter Care Teams Management Aide Relationship Specialty Start Date End Date Gabby Tomlinson MD PCP - General Family Medicine 06/05/19 01/11/20 Audie Hennessy MD [address] [place] [address] PCP - General 01/12/20 04/09/23 Audie Hennessy MD [address] [facility] [address] [place] [address] PCP - General Family Practice 04/10/23 Mo Garcia OD [address] [place] [address] Primary Eye Care Provider High School Assistant Football Coach 07/27/19 Twin Dawson MD [address] [place] [address] Surgeon Ophthalmology 07/27/19 Ang Gallo MD [address] [place] [address] Surgeon Neurosurgery 10/26/19 Marjorie Nick MD [address] [facility] [address] [place] [address] Radiation Oncologist Radiation Oncology 01/15/24 documented as of this encounter
--- OUTSIDE RECORDS SUMMARY | 2024-06-29 14:02 | XMS_ITS | Clinical Summary ---
Author Organization [facility] Address [address] [place] [address] Care Team Providers Care Emergency Management Coordinator Name Role Phone Unavailable Primary Care Provider Unavailabl e Social History Tobacco Use Types Packs/Day Years Used Date Smoking Tobacco: Never Assessed Sex and Gender Information Value Date Recorded Sex Assigned at Not on file Legal Sex Male 4:14 PM CDT Gender Identity Not on file Sexual Orientation Not on file Plan of Treatment Health Maintenance Due Date Last Done Comments Hepatitis C 1964 DTaP, Tdap and Td Vaccines ( 1 - Tdap) 1965 Zoster Vaccines (1 of 2) 1996 Pneumococcal Vaccine: 65+ Ye ars (1 of 1 - PCV) 2011 RSV Immunization or 60+ Years (1 - 1-dose 75+ series) 2021 COVID-19 Vaccine ( - 2023-2 5 season) 2023 Influenza Adult (#1) 2024 Meningococcal B Vaccine Aged Out No l onger eligible based on patient's age to complete this topic Meningococcal Vaccine Aged Out No susan reynaldo eligible based on patient's age to complete this topic RSV Immunizations Under 20 Months Aged Out No longer eligible based on patient's age to complete this topic
--- OUTSIDE RECORDS SUMMARY | 2024-06-29 14:02 | XMS_ITS | Referral Summary ---
Author Organization [facility] Address [facility] [place] [address] Care Team Providers Care Associate Professor Of Surgery Name Role Phone Mo Garcia OD Unavailable [phone] Twin Dawson MD Unavailable [phone] Ang Gallo MD Unavailable [phone] Audie Hennessy MD Primary Care Provider Marjorie [...] 1 tablet (75 mcg total) by mouth bindery machine tender before breakfast Active metoprolol XL (TOPROL-XL) 25 [...] Problems Problem Noted Date Diagnosed Date S/P DRAMATIC COACH shunt 04/29/2020 Hydrocephalus 02/01/2020 Overview (02/01/2020): Added automatically from request for surgery [id number] Other hydrocephalus 01/29/2020 Optic atrophy of both [...] (10/02/2019): Added automatically from request for surgery [id number] Legally blind 09/28/2019 Blindness right eye category [...] 04/10/2022 Pneumococcal Polysaccharide PPV23 04/15/2016,04/2015 Tdap 03/08/2021 Social History Tobacco Use Types Packs/Day Years [...] 02/15/2020 How often do you attend chur 4moms or yarsani services? 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 Gender Identity Not on file Sexual Orientation Not on file Occupation Industry Job Start Date Job End Date retired Not on file Not on file Not on file Last Filed Vital Signs Vital Sign Reading [...] 01/15/2024 12:18 PM CDT Plan of Treatment Not on file Medical Devices Implanted Type Area Design Intern Device Identifier Shelf Expiration Date Model / Serial / Lot [place] Craniomaxillofacial [id number] [place] Neuro Iii 47x29x.3mm Closed Outer Frame Temporal Plate - [id number] Implanted:Qty: 1 on 10/12/2019 by Ang Gallo MD at [facility] Craniomaxillofacial 53-0032 4 / / [place] Craniomaxillochan [facility] [id number] [place] Neuro Iii 16mmx.4mm 2 Hole Low Profile Bar - [id number] Implanted:Qty: 2 on 10/12/2019 by Ang Gallo MD at [facility] Craniomaxillochan [facility] 53-3421 6 / / [place] Craniomaxillofacial [id number] [place] Neuro Iii .4mm 2 Hole Low Profile Bar Tab - [id number] Implanted:Qty: 2 on 10/12/2019 by Ang Gallo MD at [facility] Craniomaxillochan [facility] 53-3421 2 / / Jeff Craniomaxillofacial [id number] [place] Neuro Iii 14mm Tab Craniomaxillofacial Low Profile - [id number] Implanted:Qty: 3 on 10/12/2019 by Ang Gallo MD at [facility] Craniomaxillochan [facility] 53-3451 4 / / Jeff Craniomaxillofacial [id number] [place] Neuro 3 1.5mm 4mm Self Drill Axial Stability Screw Bone Latex Free - [id number] Implanted:Qty: 20 on 10/12/2019 by Ang Gallo MD at [facility] [id number] 4 / / Acelity Lp Inc [id number] Alloderm 10x5cm Allograft Regenerative Freeze Dried Medium Matrix - [id number] Implanted:Qty: 1 on 10/12/2019 by Ang Gallo MD at [facility] Right: Cranial Allergan [employer] Inc 05/14/2021 [id number] / / [id number] 33-033 Medtronic Inc 50664 Input Ts 9fr 11cm .038in Dual Distal J Curve Introducer Sheath - [id number] Implanted:Qty: 1 on 02/11/2020 by Ang Gallo MD at [facility] Right: Head Medtronic Inc 06/29/2021 [id number] / / [id number] Description:The Strata II va lve is [...] 3 W/kg for 15 minutes. Using the Helpa 3.0T Shoplins Magnetic Resonance Imaging System, the valve experienced a maximum temperature change of 0.4 C over a 15-minute exposure period. The table provides maximum signal voids (artifact sizes) for standard imaging pulse sequences at 3.0 Nathan per ASTM F2119. [email or web address] Medtronic Usa Inc X 84715 Strata Ii Csf Programmable Flow Control Ball Spring Mechanism - [id number] Implanted:Qty: 1 on 02/11/2020 by Ang Gallo MD at [facility] Right: Head Medtronic Inc 05/09/2022 [id number] / / [id number] Description:Strata adjustabl e valves: MR conditional [...] checked before and after MRI exposure. https://www.medtronic.com/us-en/healthcare-professionals/mri-resources/neurologi gracia sorto.html Medtronic Inc 49870 Giuseppe .25cm .13cm 120cm Antibiotic Impregnated Peritoneal Catheter - [id number] Implanted:Qty: 1 on 02/11/2020 by Ang Gallo MD at [facility] Right: Abdomen Medtronic Inc 05/25/2021 [id number] / / [id number] [facility] Advance Directives For more information, please contact: [phone] Documents on File Type Date Recorded Patient Supervisor Fine Grading Expl anation ADVANCE DIRECTIVE 10/12/2019 9:25 AM Power of Commodity Director-Medical * Full Code (Latest Code Status on File) Date Activated Date Inactivated Comments 02/11/2020 4:37 PM 02/25/2020 3:55 PM * Full Code Date Activated Date Inactivated Comments 10/13/2019 12:40 AM 10/21/2019 4:13 PM Care Teams Associate Professor Of Surgery Relationship Specialty Start Date End Date Audie Hennessy MD [address] [facility] [address] [place] [address] PCP - General Family Practice 04/10/23 Mo Garcia OD [address] [place] [address] Primary Eye Care Provider Solar Photovoltaic Systems Engineer 07/27/19 Twin Dawson MD [address] [place] [address] Surgeon Ophthalmology 07/27/19 Ang Gallo MD [address] [place] [address] Surgeon Neurosurgery 10/26/19 Marjorie Nick MD [address] [facility] [address] [place] [address] Radiation Oncologist Radiation Oncology 01/15/24
--- OUTSIDE RECORDS SUMMARY | 2024-06-29 14:02 | XMS_ITS | Encounter Summary ---
Author Organization [facility] Address [address] [place] [address] Phone Care Team Providers Care Book Sorter Name Role Phone Gabby Tomlinson MD Primary Care Provider Mo Garcia OD Unavailable Twin Dawson MD Unavailable [phone] Ang Gallo MD Unavailable [phone] Audie Hennessy MD Primary Care Provider Audie Hennessy MD Primary Care Provider Marjorie Nick MD Unavailable Encounter Details Date Type Department Care Team (Late st Contact Info) Description 10/13/2019 Ophth Exam [facility] Ophthalmology [address] [place] [address] 1st [place] [id number] Adalgisa Novak MD [address] [place] [address] Social History Tobacco Use Types Packs/Day Years Used Date Smoking Tobacco: Former Cigarettes 0.8 10 1 966 - 1975 Smokeless Tobacco: Never Alcohol Use Standard Drinks/Week Comments Not Asked 14 (1 standard drink = 0.6 oz pu re alcohol) AUDIT-C Answer Date Recorded Q1: How often do you have a drink containing alc ohol? 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 Gender Identity Not on file Sexual Orientation Not on file Occupation Industry Job Start Date Job End Date retired Not on file Not on file Not on file documented as of this encounter Plan of Treatment Not on file documented as of this encounter Visit Diagnoses Not on filedocumented in this encounter Eye Exam Visual Acuity Right eye Left eye Near sc NLP CF at 2', HM far ther away Tonometry (Tonopen, 3:04 PM) Right eye Left eye Pressure 18 15 Pupils Dark Light React APD Right eye 3 3 MR + Left eye 3 2.5 Sluggish Visual Boyce Right eye Left eye Restrictions Total superior tempo ral, inferior temporal, superior nasal, inferior nasal deficiencies Total superior nasal, inferior nasal deficiencies; Partial outer superior temporal, inferior temporal deficiencies Tested with credit historian Extraocular Movement Right eye Left eye Up gaze 0 0 0 0 0 0 Right/left gaze -1 -- 0 0 -- -1 Down gaze 0 0 0 0 0 0 Neuro/Psych Oriented x3: Yes Mood/Affect: Normal A&O, slightly slow mentation External Exam Right eye Left eye External Normal Normal Slit Lamp Exam Right eye Left eye Lids/Lashes Normal Normal Conjunctiva/Sclera White and quiet White and alo et Cornea Clear Clear Anterior Chamber Deep and quiet Deep and quiet Iris Round and reactive Round and stephanie ctive Lens Posterior chamber in traocular lens Posterior chamber intraocular lens Vitreous Normal Normal Fundus Exam Right eye Left eye Disc Diffuse, severe pallor C/D Ratio 0.5 Care Teams Book Sorter Relationship Specialty Start Date End Date Gabby Tomlinson MD PCP - General Family Medicine 06/05/19 01/11/20 Audie Hennessy MD [address] [place] [address] PCP - General 01/12/20 04/09/23 Audie Hennessy MD [address] [facility] [address] [place] [address] PCP - General Family Practice 04/10/23 Mo Garcia, OD [address] [place] [address] Primary Eye Care Provider E Commerce Merchandising Coordinator 07/27/19 Twin Dawson MD [address] [place] [address] Surgeon Ophthalmology 07/27/19 Ang Gallo MD [address] [place] [address] Surgeon Neurosurgery 10/26/19 Marjorie Nick MD [address] [facility] [address] [place] [address] Radiation Oncologist Radiation Oncology 01/15/24 documented as of this encounter
[2024-06-29 14:59] LABS: Creatinine Urine 127.9 mg/dL
[2024-06-29 15:00] LABS: MALB Creatinine Ratio 6.2 mg/g (0-30); Microalbumin Urine Random 7.9 mg/L (0-16.7)
[2024-06-29 15:17] LABS: Alanine Aminotransferase 30 U/L (6-50); Albumin Level 4.6 g/dL (3.5-5.1); Alkaline Phosphatase 64 U/L (38-126); Anion Gap 9 mmol/L (4-12); Aspartate Amino Transferase 36 U/L (17-59); Bilirubin,Total 0.8 mg/dL (0.2-1.3); Blood Urea Nitrogen 18 mg/dL (9-20); Calcium 9.8 mg/dL (8.4-10.2); Carbon Dioxide 24 mmol/L (22-30); Chloride 102 mmol/L (98-107); Cholesterol 203 mg/dL (0-200); Estimated Glomerular Filt Rate > 60; Glucose 158 mg/dL (65-110); HDL Direct 40 mg/dL; Potassium 5.1 mmol/L (3.4-5.0); Sodium 135 mmol/L (137-145); Triglycerides 204 mg/dL (<150)
[2024-06-29 15:27] LABS: LDL Cholesterol Direct 120 mg/dL
[2024-06-29 15:46] LABS: Prostate Specific Antigen 0.7 ng/mL (< OR = 4.0)
[2024-06-29 17:40] LABS: Vitamin D 25 Hydroxy 46.8 ng/mL
[2024-06-29 20:23] LABS: Hemoglobin A1C 6.7 % (<5.7)
== END 2024-06-29 11:23 | disposition home or self-care (01) ==
LOC: ANHGOSHLAB 11:25
PROVIDERS: PCP Family Medicine; Visit Provider Nurse Practitioner Family
DX: E78.5 Hyperlipidemia, unspecified (principal); E11.9 Type 2 diabetes mellitus without complications; I10 Essential (primary) hypertension; E55.9 Vitamin D deficiency, unspecified; E03.9 Hypothyroidism, unspecified; Z12.5 Encounter for screening for malignant neoplasm of prostate
CPT/HCPCS: 36415; 80053; 80061; 82043; 82306; 83036; 84153; 84443; 85025; G0103

== ENCOUNTER 2024-09-08 12:45 | Outpatient (RCR) | payer OTHER, SELFPAY ==
--- NOTE | 2024-07-07 12:47 | OPREHPOC ---
Outpatient Therapy Plan of Care This is a Multidisciplinary Plan of Care that may contain components documented by all disciplines (PT, OT, and ST.) PT Problem 1 PT Problem #1 Knowledge Deficit PT Goal 1 Goal / Goal Update [place] with HEP Target Visit 3 PT Goal 2 Goal / Goal Update Patient will show carry over with gait instruction for foot clearance and tracking Target Visit 8 PT Problem 2 PT Problem #2 Impaired Functional Mobility PT Goal 1 Goal / Goal Update 1. Improve Tinetti score by 6 points to reduce fall risk 2. Improve 2 minute walk test to 350 feet for improved gait speed and reduced fall risk Target Visit 8 PT Problem 3 PT Problem #3 Impaired Balance PT Goal 1 Goal / Goal Update Improve ability to maintain balance ion uneven surface for 30s without LOB to improve vestibular integration
--- NOTE | 2024-07-07 12:47 | PTOPEVAL1 ---
Assessment and note entered by Clyde Copeland, PT Evaluation Information Assessment Status Evaluation ICD-10 Condition Codes (PT) Difficulty Walking R26.2,Abnormalities of gait and mobility R26.9,Weakness R53.1 Onset Chronic Subjective Information Patient reports history of falls with most recent about 2 weeks ago. About 2 falls have occurred in the past 3 months. He reports that he has very poor vision to begin with which makes it difficult to walk. Feels that majority of his falls are due to uneven surfaces. Quick turns cause him to lose balance to the inside. Reports that he does have issues at time staying awake. Reported Pain Level Pain Score 0: Self Report Assessment PT Clinical Summary Patient presents with poor foot clearance, poor balance, and gait deficits placing him in high fall risk category. History of falls and decreased mobility indicates need for skilled therapy at this time. Treatment should emphasis endurance training for gait and mobility and balance training. Plan of Care Interventions Gait Training,Manual Therapy,Neuro Re-education, Therapeutic Activities,Therapeutic Exercise PT Services Indicated Yes Treatment Frequency and 2x/week for 8 visits Duration These treatments will address the objective and functional deficits as defined above. The patient will be advanced safely and appropriately in order for the patient to progress towards his/her prior level of function. Additional exercises will be introduced and as well as a comprehensive home exercise program upon discharge, if needed, ?to ensure carryover of functional gains achieved in the clinic. This treatment plan has been reviewed and agreement upon by the patient.
--- NOTE | 2024-07-16 09:16 | PCPTNOTE ---
Patient called to cancel stating he got a late start to his morning and would not be able to make it to therapy in time.
--- NOTE | 2024-08-03 16:26 | OPREHPOC ---
Outpatient Therapy Plan of Care This is a Multidisciplinary Plan of Care that may contain components documented by all disciplines (PT, OT, and ST.) PT Problem 1 PT Problem #1 Knowledge Deficit PT Goal 1 Goal / Goal Update [place] with HEP Target Visit 3 Progress Met PT Goal 2 Goal / Goal Update Patient will show carry over with gait instruction for foot clearance and tracking Target Visit 8 Progress Partially Met PT Problem 2 PT Problem #2 Impaired Functional Mobility PT Goal 1 Goal / Goal Update 1. Improve Tinetti score by 6 points to reduce fall risk 2. Improve 2 minute walk test to 350 feet for improved gait speed and reduced fall risk 08/03/24: 1. met 2. progressing Target Visit 8 PT Problem 3 PT Problem #3 Impaired Balance PT Goal 1 Goal / Goal Update Improve ability to maintain balance ion uneven surface for 30s without LOB to improve vestibular integration Progress Met
--- NOTE | 2024-08-03 16:26 | PTOPPROG ---
Assessment and note entered by Olga De Luna, PT, DPT Evaluation Information Assessment Status Progress ICD-10 Condition Codes (PT) Difficulty Walking R26.2,Abnormalities of gait and mobility R26.9,Weakness R53.1 Onset Chronic Subjective Information Pt states it feels like his balance has improved and his walking is getting easier. States he still has a hard time getting in/out of bed. Pts states he has had 2 falls and well as gotten car sick on multiple occasions since starting therapy. Pts states he was able to get up from the ground with Min A after his last fall. Assessment PT Clinical Summary Patient presents to therapy today following 6 visits of skilled therapy. Today he demonstrates improved gait speed and score on balance assessments but these outcomes and his decreased LE strength still place his at an increased risk for falls. He is making good progress towards his therapy goals. Continuation of skilled services are indicated for gait and mobility, strength, and balance training. Plan of Care Interventions Gait Training,Manual Therapy,Neuro Re-education, Therapeutic Activities,Therapeutic Exercise PT Services Indicated Yes Treatment Frequency and 1x/week for 8 visits Duration These treatments will address the objective and functional deficits as defined above. The patient will be advanced safely and appropriately in order for the patient to progress towards his/her prior level of function. Additional exercises will be introduced and as well as a comprehensive home exercise program upon discharge, if needed, ?to ensure carryover of functional gains achieved in the clinic. This treatment plan has been reviewed and agreement upon by the patient.
--- NOTE | 2024-09-08 16:47 | OPREHPOC ---
Outpatient Therapy Plan of Care This is a Multidisciplinary Plan of Care that may contain components documented by all disciplines (PT, OT, and ST.) PT Problem 1 PT Problem #1 Knowledge Deficit PT Goal 1 Goal / Goal Update [place] with HEP Target Visit 3 Progress Met PT Goal 2 Goal / Goal Update Patient will show carry over with gait instruction for foot clearance and tracking Target Visit 8 Progress Met PT Problem 2 PT Problem #2 Impaired Functional Mobility PT Goal 1 Goal / Goal Update 1. Improve Tinetti score by 6 points to reduce fall risk 2. Improve 2 minute walk test to 350 feet for improved gait speed and reduced fall risk 08/03/24: 1. met 2. progressing Target Visit 8 Progress Met PT Problem 3 PT Problem #3 Impaired Balance PT Goal 1 Goal / Goal Update Improve ability to maintain balance ion uneven surface for 30s without LOB to improve vestibular integration Progress Met
--- NOTE | 2024-09-08 16:47 | PTOPDC ---
Assessment and note entered by Clyde Copeland, PT Evaluation Information Assessment Status Progress ICD-10 Condition Codes (PT) Difficulty Walking R26.2,Abnormalities of gait and mobility R26.9,Weakness R53.1 Onset Chronic Subjective Information Reports that overall he is seeing improvement and progressing physically. Still having a lot of trouble kneeling and picking things up from the floor. Still feels he has poor endurance as showering and getting dressed wears him out. Biggest concern he has is with his bending. He also does not trust himself with big step downs. Overall he feels that he will need to continue to work on home compliance and plans to continue exercises to maintain and improve strength and motion. Reported Pain Level Pain Score 0: Self Report Assessment PT Clinical Summary Patient has met all goals for therapy and is suitable for discharge to [facility] at this time. Patient needs to ensure usp strengthening and endurance training per plan. We deeply discussed the importance of home compliance and continued exercise. Will be discharged at this time to [facility]. Plan of Care PT Services Indicated Yes
== END 2024-09-09 08:52 | disposition home or self-care (01) ==
LOC: ANHGOSHPT 12:45
PROVIDERS: PCP Family Medicine; Visit Provider Nurse Practitioner Family
DX: R26.9 Unspecified abnormalities of gait and mobility (principal)
CPT/HCPCS: 97110; 97112; 97116; 97140; 97161; 97530

== ENCOUNTER 2025-01-12 11:17 | Outpatient (CLI) | payer OTHER, SELFPAY ==
--- OUTSIDE RECORDS SUMMARY | 2025-01-12 11:46 | XMS_ITS | Encounter Summary ---
Author Organization [facility] Address [address] [place] [address] Care Team Providers Care Roller Setter Name Role Phone Gabby Tomlinson MD Primary Care Provider Mo Garcia OD Unavailable [phone] Twin Dawson MD Unavailable [phone] Ang Gallo MD Unavailable [phone] Audie Hennessy MD Primary Care Provider Audie Hennessy MD Primary Care Provider Marjorie Nick MD Unavailable Encounter Details Date Type Department Care Team (Late st Contact Info) Description 09/24/2019 Telephone [facility] Imaging [address] [place] [address] Alexia Ch, RT Social History Tobacco Use Types Packs/Day Years Used Date Smoking Tobacco: Former Cigarettes 0.5 10 Smokeless Tobacco: Never Sex and Gender Information Value Date Recorded Sex Assigned at Not on file 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 [address] [place] [address] PCP - General Family Practice 04/10/23 Mo Garcia OD [address] [place] [address] Primary Eye Care Provider Commodity Merchant 07/27/19 Twin Dawson MD [address] [place] [address] Surgeon Ophthalmology 07/27/19 Ang Gallo MD [address] [place] [address] Surgeon Neurosurgery 10/26/19 Marjorie Nick MD [address] [facility] [address] [place] [address] Radiation Oncologist Radiation Oncology 01/15/24 documented as of this encounter
--- OUTSIDE RECORDS SUMMARY | 2025-01-12 11:47 | XMS_ITS | Encounter Summary ---
Author Organization [facility] Address [address] [place] [address] Phone Care Team Providers Care Head Coach Name Role Phone Gabby Tomlinson MD Primary Care Provider oM Garcia OD Unavailable Twin Dawson MD Unavailable [phone] Ang Gallo MD Unavailable [phone] Audie Hennessy MD Primary Care Provider Audie Hennessy MD Primary Care Provider Marjorie Nick MD Unavailable Encounter Details Date Type Department Care Team (Late st Contact Info) Description 10/13/2019 Ophth Exam [facility] Medicine Ophthalmology [address] [place] [address] [place] [id number] Adalgisa Novak MD [address] [place] [address] Social History Tobacco Use Types [...] on file 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 Gender Identity Not on file Sexual Orientation [...] superior temporal, inferior temporal deficiencies Tested with heel reducer Extraocular Movement Right eye Left eye Up [...] severe pallor C/D Ratio 0.5 Care Teams Head Coach Relationship Specialty Start Date End Date Gabby Tomlinson MD PCP - General Family Medicine 06/05/19 01/11/20 Audie Hennessy MD [address] [place] [address] PCP - General 01/12/20 04/09/23 Audie Hennessy MD [address] [facility] [address] [place] [address] PCP - General Family Practice 04/10/23 Mo Garcia, OD [address] [place] [address] Primary Eye Care Provider Guest Relations Executive 07/27/19 Twin Dawson MD [address] [place] [address] Surgeon Ophthalmology 07/27/19 Ang Gallo MD [address] [place] [address] Surgeon Neurosurgery 10/26/19 Marjorie Nick MD [address] [facility] [address] [place] [address] Radiation Oncologist Radiation Oncology 01/15/24 documented as of this encounter
--- OUTSIDE RECORDS SUMMARY | 2025-01-12 11:47 | XMS_ITS | Clinical Summary ---
Author Organization [facility] Address [address] [place] [address] Care Team Providers Care Anode Crew Supervisor Name Role Phone Mo Garcia OD Unavailable [phone] Twin Dawson MD Unavailable [phone] Ang Gallo MD Unavailable [phone] Audie Hennessy MD Primary Care Provider Marjorie Nick MD Unavailable Allergies Active Allergy Reactions Criticality Noted Date Comments Lisinopril Cough Low 10/26/2019 Medications dutasteride (AVODART) 0.5 mg capsuleIndicatio ns:benign prostatic hyperplasia with lower urinary tract sx Take 1 capsule (0.5 mg total) by mouth nightly Active losartan (COZAAR) 50 mg tabletIndication s:hypertension Take 1 tablet (50 mg total) by mouth nightly Active metoprolol XL (TOPROL-XL) 25 mg extended release tablet Take 1 tablet (25 mg total) by mouth daily 30 tablet 11 02/25/2020 Active escitalopram (LEXAPRO) 10 mg tablet Take 1 tablet (10 mg total) by mouth daily 04/22/2020 Active LORazepam (ATIVAN) 0.5 mg tablet Take 1 tablet (0.5 mg total) by mouth every 6 (six) hours as needed 05/16/2020 Active cholecalciferol (VITAMIN D-3) 50,000 unit capsule 01/10/2023 Active metroNIDAZOLE (METROGEL) 1 % gel 06/03/2023 Active levothyroxine (SYNTHROID) 100 mcg tablet 11/11/2023 Active Active Problems Problem Noted Date Diagnosed Date S/P HOME CARE ADMINISTRATOR shunt 04/29/2020 Hydrocephalus 02/01/2020 Overview (02/01/2020): Added automatically from request for surgery [id number] Other hydrocephalus 01/29/2020 Optic atrophy of both [...] (10/02/2019): Added automatically from request for surgery [id number] 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 Three times a week 02/15/2020 How often do you get togethe r with friends or relatives? Once a week 02/15/2020 How often do you attend chur ch or sabianism services? 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 Gender Identity Not on file Sexual Orientation Not on file Occupation Industry Job Start Date Job End Date retired Not on file Not on file Not on file Obstetrics History Last Filed Vital Signs Vital Sign Reading Time Taken Comments Blood Pressure 121/66 07/29/2024 11:34 AM CDT Pulse 93 07/29/2024 11:34 AM CDT Temperature 36.7 C (98.1 F) 07/29/2024 11:34 AM CDT Respiratory Rate 17 07/29/2024 11:34 AM CDT Oxygen Saturation 98% 07/29/2024 11:34 AM CDT Inhaled Oxygen Concentration - - Weight 93 kg (205 lb) 07/29/2024 11:34 AM CDT Height 170.2 cm (5' 7.01) 07/29/2024 11:34 AM C DT Body Mass Index 32.1 07/29/2024 11:34 AM CDT Plan of Treatment Health Maintenance Due Date Last Done Comments Depression Screening 1945 Hepatitis C Screening 1946 Hepatitis B Screening 1964 Zoster Vaccine (1 of 2) 1996 Abdominal Aortic Aneurysm (A AA) Screen 2011 Well Visit 65+ 2011 Pneumococcal vaccine 65+ (2 of 2 - PCV) 04/15/2017 04/15/2016, 04/15/2015 Fall Risk Assessment 05/15/2024 05/15/2023, 02/25/20 20 Covid-19 Vaccine (4 - 2024-2 6 season) 2024 04/10/2022, 03/15/2021, 06/03/2020 Influenza Vaccine (#1) 2024 , 01/20/2019, 01/13/2015, Additional history exists DTaP/Tdap/Td Vaccine (2 - Td or Tdap) 03/08/2031 03/08/2021 Medical Devices Implanted Type Area C Java Developer Device Identifier Shelf Expiration Date Model / Serial / Lot Wobeek Craniomaxillofacial [id number] Stanley Neuro Iii 47x29x.3mm Closed Outer Frame Temporal Plate - [id number] Implanted:Qty: 1 on 10/12/2019 by Ang Gallo MD at [facility] [place] Craniomaxillofacial [id number] / / [place] Craniomaxillofacial [id number] Stanley Neuro Iii 16mmx.4mm 2 Hole Low Profile Bar - [id number] Implanted:Qty: 2 on 10/12/2019 by Ang Gallo MD at [facility] Craniomaxillofacial [id number] 6 / / Jeff Craniomaxillofacial [id number] Stanley Neuro Iii .4mm 2 Hole Low Profile Bar Tab - [id number] Implanted:Qty: 2 on 10/12/2019 by Ang Gallo MD at [facility] Craniomaxillofacial [id number] 2 / / [place] Craniomaxillofacial [id number] Stanley Neuro Iii 14mm Tab Craniomaxillofacial Low Profile - [id number] Implanted:Qty: 3 on 10/12/2019 by Ang Gallo MD at [facility] Craniomaxillofacial [id number] 4 / / [place] Craniomaxillofacial [id number] Stanley Neuro 3 1.5mm 4mm Self Drill Axial Stability Screw Bone Latex Free - [id number] Implanted:Qty: 20 on 10/12/2019 by Ang Gallo MD at [facility] Craniomaxillofacial [id number] 4 / / Acelity Lp Inc [id number] Alloderm 10x5cm Allograft Regenerative Freeze Dried Medium Matrix - [id number] Implanted:Qty: 1 on 10/12/2019 by Ang Gallo MD at [facility] Right: Cranial Allergan MyForce Inc 05/14/2021 [id number] / / [id number] Medtronic Inc 30632 Input Ts 9fr 11cm .038in Dual Distal J Curve Introducer Sheath - [id number] Implanted:Qty: 1 on 02/11/2020 by Ang Gallo MD at [facility] Right: Head Medtronic Inc 06/29/2021 [id number] / / [id number] Description:The Strata II va lve is considered Magnetic Resonance Conditional in accordance with ASTM F2503. MRI systems of up to 3.0 Claire may be used any time after implantation [...] following conditions: Static magnetic field of 3.0 Claire or less Spatial Gradient of 720 G/cm or less Radio Frequency (RF) Boyce with an average Specific Absorption Rate (MEDHAT) of 3 W/kg for 15 minutes. Using the Viraloid 3.0T Scandite HD Magnetic Resonance Imaging System, the valve experienced a maximum temperature change of 0.4 C over a 15-minute exposure period. The table provides maximum signal voids (artifact sizes) for standard imaging pulse sequences at 3.0 Claire per ASTM F2119. https://www.medtronic.com/content/dam/emanuals/st/V257155H526I.pdf Medtronic Usa Inc X [id number] Strata Ii Csf Programmable Flow Control Ball Spring Mechanism - [id number] Implanted:Qty: 1 on 02/11/2020 by Ang Gallo MD at [facility] Right: Head Medtronic Inc 05/09/2022 [id number] / / [id number] Description:Strata adjustabl e valves: MR conditional Strata adjustable valves are considered magnetic resonance conditional in accordance with ASTM F2503. MRI systems of up to 3.0 claire and a spatial gradient magnetic field of 720 gauss/cm or less, may be used at any time after implantation without damaging the Strata adjustable valve mechanism. However, exposure to MRI can change the performance level setting of the Strata adjustable valve. The Strata adjustable valve performance level setting should always be checked before and after MRI exposure. https://www.medtronic.com/us-en/healthcare-professionals/mri-resources/neurologi pauline-dilcia sorto.html Medtronic Inc 98364 Giuseppe .25cm .13cm 120cm Antibiotic Impregnated Peritoneal Catheter - [id number] Implanted:Qty: 1 on 02/11/2020 by Ang Gallo MD at [facility] Right: Abdomen Medtronic Inc 05/25/2021 [id number] / / [id number] Insurance HEALTHCARE HEALTHCARE HEALTHCARE Advance Directives For more information, please contact: [phone] Documents on File Type Date Recorded Patient Water Treatment Plant Engineer Expl anation ADVANCE DIRECTIVE 10/12/2019 9:25 AM Power of Risk Control Specialist-Medical * Full Code (Latest Code Status on File) Date Activated Date Inactivated Comments 02/11/2020 4:37 PM 02/25/2020 3:55 PM * Full Code Date Activated Date Inactivated Comments 10/13/2019 12:40 AM 10/21/2019 4:13 PM Care Teams Anode Crew Supervisor Relationship Specialty Start Date End Date Audie Hennessy MD [address] [facility] [address] [place] [address] PCP - General Family Practice 04/10/23 Mo Garcia OD [address] [place] [address] Primary Eye Care Provider Muck Operator 07/27/19 Twin Dawson MD [address] [place] [address] Surgeon Ophthalmology 07/27/19 Ang Gallo MD [address] [place] [address] Surgeon Neurosurgery 10/26/19 Marjorie Nick MD [address] [facility] [address] [place] [address] Radiation Oncologist Radiation Oncology 01/15/24
--- OUTSIDE RECORDS SUMMARY | 2025-01-12 11:47 | XMS_ITS | Clinical Summary ---
Author Organization [facility] Address [address] [place] [address] Care Team Providers Care Manager Market Name Role Phone Unavailable Primary Care Provider [...] Td Vaccines ( 1 - Tdap) 1965 Pneumococcal Vaccine: 50+ Ye ars (1 of 1 - PCV) 1996 Zoster Vaccines (1 of 2) 1996 RSV Immunization or 60+ Years (1 - 1-dose 75+ series) 2021 COVID-19 Vaccine ( - 2023-2 5 season) 2024 Meningococcal B Vaccine Aged Out No l onger eligible based on patient's age to complete this topic Meningococcal Vaccine Aged Out No susan reynaldo eligible based on patient's age to complete this topic RSV Immunizations Under 20 Months Aged Out No longer eligible based on patient's age to complete this topic
[2025-01-12 13:03] LABS: Hematocrit 52.9 % (42.0-52.0); Hemoglobin 17.6 g/dL (14.0-18.0); Immature Granulocyte Percent A 0.6 % (0-0.5); Lymphocytes Absolute Auto 2.56 K/mm3 (0.9-3.2); Mean Corpuscular HGB Conc 33.3 g/dl (32-36); Mean Corpuscular Hemoglobin 29.6 pg (26-34); Mean Corpuscular Volume 89.1 fl (80-100); Nucleated Red Blood Cells Absolute Auto 0.000 K/mm3 (0.0-0.012); Nucleated Red Blood Cells Perc 0.0 % (0.0-0.2); Platelet Count Result 285 k/mm3 (150-375); Red Blood Count 5.94 M/mm3 (4.6-6.20); White Blood Count 9.3 K/mm3 (4.5-10.0)
[2025-01-12 13:19] LABS: Alanine Aminotransferase 29 U/L (6-50); Albumin Level 4.5 g/dL (3.5-5.1); Alkaline Phosphatase 63 U/L (38-126); Anion Gap 12 mmol/L (4-12); Aspartate Amino Transferase 36 U/L (17-59); Bilirubin,Total 1.1 mg/dL (0.2-1.3); Blood Urea Nitrogen 17 mg/dL (9-20); Calcium 9.6 mg/dL (8.4-10.2); Carbon Dioxide 23 mmol/L (22-30); Chloride 99 mmol/L (98-107); Cholesterol 210 mg/dL (0-200); Estimated Glomerular Filt Rate > 60; Glucose 150 mg/dL (65-110); HDL Direct 37 mg/dL; Potassium 4.5 mmol/L (3.4-5.0); Sodium 134 mmol/L (137-145); Total Protein 8.1 g/dL (6.3-8.2); Triglycerides 281 mg/dL (<150)
[2025-01-12 13:41] LABS: Thyroid Stimulating Hormone Reflex 2.210 uIU/mL (0.465-4.68)
[2025-01-12 16:27] LABS: Hemoglobin A1C 6.7 % (<5.7)
== END 2025-01-12 11:18 | disposition home or self-care (01) ==
LOC: ANHGOSHLAB 11:17
PROVIDERS: PCP Nurse Practitioner Family; Visit Provider Nurse Practitioner Family
DX: E78.5 Hyperlipidemia, unspecified (principal); I10 Essential (primary) hypertension; E11.9 Type 2 diabetes mellitus without complications; E03.9 Hypothyroidism, unspecified
CPT/HCPCS: 36415; 80053; 80061; 83036; 84443; 85025